=== PATIENT | male | born 1990 | race American Indian/Alaskan Native ===

== ENCOUNTER 2020-03-04 00:45 | Emergency (ER) | payer SELFPAY ==
[2020-03-04 00:58] VITALS: BP 153/84
== END 2020-03-04 09:10 | disposition left against medical advice (07) ==
LOC: ED 00:45
DX: Z04.1 Encounter for examination and observation following transport accident (principal); Z53.21 Procedure and treatment not carried out due to patient leaving prior to being seen by health care provider